=== PATIENT | male | born 1945 | race Caucasian/White ===

== ENCOUNTER 2017-09-04 21:37 | Emergency (ER) | payer MEDICARE ==
[2017-09-04] MEDS ORDERED: Orphenadrine Citrate 60 MG/2 ML VIAL ONE (22:47)
--- NOTE | 2017-09-04 22:50 | RAD ---
LUMBAR SPINE THREE VIEWS: 09/04/17 HISTORY: Low back pain. FINDINGS: Degenerative changes are present. No acute fracture or subluxation or bony destruction identified. Th ere are vascular calcifications. IMPRESSION: Lumbar spondylosis. POS: KARTHIKEYAN
== END 2017-09-04 23:10 | disposition home or self-care (01) ==
LOC: NAV ERS 21:37
DX: M54.5 Low back pain (principal); I10 Essential (primary) hypertension; E78.5 Hyperlipidemia, unspecified; Z86.73 Personal history of transient ischemic attack (TIA), and cerebral infarction without residual deficits
CPT/HCPCS: 72100; 96374; J2360

== ENCOUNTER 2017-09-14 14:13 | Emergency (ER) | payer MEDICARE ==
[2017-09-14 14:54] LABS: Bilirubin Negative (Negative); Blood, Urine Negative (Negative); Clarity Clear (Clear); Glucose, Urine (Dipstick) Negative (Negative); Leukocyte Negative (Negative); Nitrite Negative (Negative); Protein, Urine (Dipstick) Negative (Neg-Trace); Urobilinogen 0.2 mg/dL (0.2-1.0)
[2017-09-14 14:56] LABS: Specific Gravity, Urine 1.005 (1.002-1.036)
[2017-09-14] MEDS ORDERED: Tamsulosin HCl 0.4 MG CAP ONE (15:01)
== END 2017-09-14 15:17 | disposition home or self-care (01) ==
LOC: NAV ERS 14:13
DX: R33.9 Retention of urine, unspecified (principal); I10 Essential (primary) hypertension; Z86.73 Personal history of transient ischemic attack (TIA), and cerebral infarction without residual deficits; E78.5 Hyperlipidemia, unspecified; Z79.899 Other long term (current) drug therapy
CPT/HCPCS: 81003; 87086; 99283

== ENCOUNTER 2018-09-12 06:58 | Emergency (ER) | payer MEDICARE ==
[2018-09-12 07:54] LABS: Bacteria/HPF 1+ HPF (None Seen); WBC/HPF 21-50 HPF (0-3)
[2018-09-12 07:55] LABS: Other Microscopic Description NO
[2018-09-12 10:16] LABS: Clarity Cloudy (Clear)
[2018-09-12 10:18] LABS: Leukocyte Moderate (Negative); Nitrite Positive (Negative); Protein, Urine (Dipstick) Trace mg/dL (Neg-Trace)
[2018-09-12 10:19] LABS: Glucose, Urine (Dipstick) Negative (Negative)
[2018-09-12 10:20] LABS: Bilirubin Negative (Negative); Urobilinogen 0.2 mg/dL (0.2-1.0)
[2018-09-12 10:21] LABS: Blood, Urine Small (Negative)
== END 2018-09-12 08:10 | disposition home or self-care (01) ==
LOC: NAV ERS 06:58
DX: N39.0 Urinary tract infection, site not specified (principal); I10 Essential (primary) hypertension; E78.5 Hyperlipidemia, unspecified; Z86.73 Personal history of transient ischemic attack (TIA), and cerebral infarction without residual deficits
CPT/HCPCS: 81003; 81015; 87077; 87086; 87186; 99283

== ENCOUNTER 2019-08-20 09:13 | Emergency (ER) | payer MEDICARE | END 2019-08-20 10:00 | disposition home or self-care (01) | LOC: NAV ERS 09:13 | DX: J06.9 Acute upper respiratory infection, unspecified (principal); I10 Essential (primary) hypertension; Z86.73 Personal history of transient ischemic attack (TIA), and cerebral infarction without residual deficits; E78.5 Hyperlipidemia, unspecified; E78.00 Pure hypercholesterolemia, unspecified | CPT/HCPCS: 87804; 99283 ==

== ENCOUNTER 2020-08-10 08:58 | Inpatient (IN) | payer MEDICARE ==
[2020-08-10 09:27] LABS: #Basophils 0.1 thou/uL (0.0-0.2); #Eosinphils 0.2 thou/uL (0.0-0.7); #Lymphocytes 2.1 thou/uL (1.20-3.40); #Monocytes 0.5 thou/uL (0.11-0.59); #Neutrophils 3.9 thou/uL (1.40-6.50); %Basophils 1.2 % (0.0-1.0); %Eosinophils 3.1 % (0.0-10.0); %Lymphocytes 30.7 % (21.0-51.0); %Neutrophils 57.1 % (42.0-75.0); Hemoglobin 15.3 g/dL (14.0-18.0); Mean Corpuscular HGB CONC 34.1 g/dL (32.0-36.0); Mean Corpuscular Hemoglobin 32.5 pg (27.0-31.0); Mean Corpuscular Volume 95.5 fL (78.0-98.0); Mean Platelet Volume 7.1 fL (7.4-10.4); Platelet Count 160 thou/uL (130-400); RBC Distribution Width 11.4 % (11.5-14.5); Red Blood Cell (RBC) Count 4.71 mill/uL (4.70-6.10); White Blood Cell (WBC) Count 6.8 thou/uL (4.8-10.8)
[2020-08-10] MEDS ORDERED: Sodium Chloride 0.9% 1,000 ML ONE (09:40)
[2020-08-10 09:51] LABS: ALT (SGPT) 26 U/L (8-55); AST (SGOT) 18 U/L (5-34); Albumin 4.6 g/dL (3.4-4.8); Alkaline Phosphatase 62 U/L (40-110); Anion Gap 18 mmol/L (10-20); BUN (Urea Nitrogen) 28 mg/dL (8.4-25.7); Bilirubin, Total 0.6 mg/dL (0.2-1.2); CK (CPK) 52 U/L (30-200); Calc. Creatinine Clearance 0 mL/min (70-130); Calcium 10.9 mg/dL (7.8-10.44); Carbon Dioxide 22 mmol/L (23-31); Chloride 105 mmol/L (98-107); Globulin 3.6 g/dL (2.4-3.5); Glucose 109 mg/dL (83-110); Potassium 3.9 mmol/L (3.5-5.1); Protein, Total 8.2 g/dL (5.8-8.1); Sodium 141 mmol/L (136-145)
[2020-08-10 09:53] LABS: Bilirubin Negative (Negative); Blood, Urine Small (Negative); Clarity Clear (Clear); Glucose, Urine (Dipstick) Negative (Negative); Ketone, Urine Negative (Negative); Leukocyte Negative (Negative); Nitrite Negative (Negative); Protein, Urine (Dipstick) Negative (Neg-Trace); Specific Gravity, Urine 1.015 (1.005-1.030); Urobilinogen 0.2 mg/dL (Less than 2)
[2020-08-10 10:07] LABS: RBC/HPF 0-3 HPF (0-3); Squamous Epithelial 0-3 HPF (0-3); WBC/HPF 0-3 HPF (0-3)
--- NOTE | 2020-08-10 12:20 | RAD ---
CHEST 1 VIEW PORTABLE: Date: 08/10/2020 HISTORY: Generalized weakness. COMPARISON: 12/24/2014. FINDINGS: Heart size is within normal limits. No confluent pneumonia, overt edema, or pleural effusion. IMPRESSION: No significant acute intrathoracic disease. Stable from prior study. POS: RRE
--- NOTE | 2020-08-10 14:02 | CT ---
CT OF THE BRAIN WITHOUT CONTRAST: 08/10/20 COMPARISON: 12/24/14. HISTORY: Altered mental status. TECHNIQUE: Multiple contiguous axial images were obtained in a CT of the brain without contrast. FINDINGS: There is scattered hypodensities in the subcortical and periventricular white matter, likely secondar y to small vessel ischemic disease. There is encephalomalacia in the right parieto-occipital region l ikely secondary to a remote right RADIO ASSEMBLER distribution infarction. No loss of bonilla-white matter different iation is seen to suggest a new large confluent infarction. There is no evidence of hydrocephalus, intracranial hemorrhage or extra-axial fluid collection. The calvarium and overlying soft tissues are unremarkable. The visualized paranasal sinuses and masto id air cells are well aerated. IMPRESSION: Extensive small vessel ischemic disease without acute intracranial abnormality. POS: DELMYA
[2020-08-10 14:38] LABS: SARS-CoV-2 NAA Rapid Test Not Detected (NotDetected)
[2020-08-10] MEDS: Dextrose 5 %-0.45 % NaCl 1,000 ML IV SCH (17:04)
[2020-08-10] MEDS: Amlodipine 5 MG TAB PO SCH (21:01)
[2020-08-11] MEDS: Dextrose 5 %-0.45 % NaCl 1,000 ML IV SCH ×2 (04:17→16:48)
[2020-08-11 05:42] LABS: Hemoglobin 13.6 g/dL (14.0-18.0); Mean Corpuscular HGB CONC 33.6 g/dL (32.0-36.0); Mean Corpuscular Hemoglobin 32.1 pg (27.0-31.0); Mean Corpuscular Volume 95.6 fL (78.0-98.0); Platelet Count 197 thou/uL (130-400); RBC Distribution Width 11.5 % (11.5-14.5); Red Blood Cell (RBC) Count 4.22 mill/uL (4.70-6.10); White Blood Cell (WBC) Count 6.8 thou/uL (4.8-10.8)
[2020-08-11 05:43] LABS: #Basophils 0.1 thou/uL (0.0-0.2); #Eosinphils 0.2 thou/uL (0.0-0.7); #Lymphocytes 2.2 thou/uL (1.20-3.40); #Monocytes 0.6 thou/uL (0.11-0.59); #Neutrophils 3.7 thou/uL (1.40-6.50); %Basophils 1.2 % (0.0-1.0); %Eosinophils 3.1 % (0.0-10.0); %Lymphocytes 32.3 % (21.0-51.0); %Monocytes 9.1 % (0.0-10.0); %Neutrophils 54.3 % (42.0-75.0); Manual Diff?? NO; Mean Platelet Volume 6.5 fL (7.4-10.4)
[2020-08-11 05:52] LABS: ALT (SGPT) 21 U/L (8-55); AST (SGOT) 16 U/L (5-34); Alkaline Phosphatase 40 U/L (40-110); Anion Gap 13 mmol/L (10-20); BUN (Urea Nitrogen) 21 mg/dL (8.4-25.7); Bilirubin, Total 0.6 mg/dL (0.2-1.2); Calc. Creatinine Clearance 49 mL/min (70-130); Calcium 9.4 mg/dL (7.8-10.44); Carbon Dioxide 26 mmol/L (23-31); Chloride 106 mmol/L (98-107); Glucose 102 mg/dL (83-110); Potassium 3.6 mmol/L (3.5-5.1); Sodium 141 mmol/L (136-145)
[2020-08-11] MEDS: Amlodipine 5 MG TAB PO SCH (20:06)
[2020-08-12] MEDS: Dextrose 5 %-0.45 % NaCl 1,000 ML IV SCH (18:30)
[2020-08-12] MEDS: Amlodipine 5 MG TAB PO SCH (20:30)
[2020-08-13] MEDS: Dextrose 5 %-0.45 % NaCl 1,000 ML IV SCH (05:18)
[2020-08-13] MEDS: Amlodipine 5 MG TAB PO SCH (20:40)
[2020-08-14] MEDS: Dextrose 5 %-0.45 % NaCl 1,000 ML IV SCH ×2 (00:46→07:50)
[2020-08-14] MEDS ORDERED: Ventolin HFA Inhaler 60 PUFF INHALER ONE (10:38)
[2020-08-14] MEDS: Amlodipine 5 MG TAB PO SCH (21:09)
--- NOTE | 2020-08-15 11:18 | PRG ---
DATE OF SERVICE: 08/11/2020 SUBJECTIVE: The patient feels slightly better than cooperating with therapy, but is very weak and unable to do much. He has been eating fairly well, but still has poor appetite. OBJECTIVE: VITAL SIGNS: Temperature is 98.2, pulse 66, blood pressure 133/64, O2 sats 97% on room air. LUNGS: Clear. CARDIAC: Showed regular rhythm. ABDOMEN: Soft and nontender. SKIN/EXTREMITIES: Display improving condition of the skin on his feet and hands. PT, however, states the patient is unable to stand, transfer, and walk without assistance and definitely needs therapy for conditioning. PLAN: 1. Continue PT/OT. 2. Continue amlodipine . 3. Continue to monitor renal function with increased oral intake and nutrition. Job ID: [id number]
--- NOTE | 2020-08-15 11:20 | PRG ---
DATE OF SERVICE: 08/12/2020 SUBJECTIVE: The patient states he is feeling better, getting stronger, still very weak and unable to get out of the bed without assistance. OBJECTIVE: VITAL SIGNS: Temperature 98.5, pulse 66, respirations 16, O2 sats 98% on room air, blood pressure 149/65. LUNGS: Clear. CARDIAC: Showed regular rhythm. ABDOMEN: Soft and nontender. SKIN/EXTREMITIES: Show no edema, clubbing, cyanosis, OR erythema. NEUROLOGIC: Shows no focal findings. ASSESSMENT: 1. Slowly improving deconditioning. 2. Improving chronic kidney disease stage 3 with acute kidney injury. 3. Stable hypertension. PLAN: 1. Continue PT, OT. 2. Continue oral hydration. 3. Continue blood pressure control. 4. Repeat renal function in several days. Job ID: [id number]
--- NOTE | 2020-08-15 11:24 | PRG ---
DATE OF SERVICE: 08/13/2020 SUBJECTIVE: The patient is working with therapy, walking in the lassiter, but requires assistance and several times of rest. Denying any shortness of breath or chest pain. OBJECTIVE: VITAL SIGNS: Show temperature 97.9, pulse 65, respirations 16, O2 sats 97% on room air, blood pressure 135/79. LUNGS: Clear. CARDIAC: Showed regular rhythm. ABDOMEN: Soft, nontender. ASSESSMENT: 1. Improving deconditioning. 2. Stable hypertension. 3. Improving nutrition. 4. Improving acute kidney injury. PLAN: Continue PT, OT. Continue nutrition. Repeat labs for the next several days. Consider transfer to rehab for more therapy or home with [facility]. Job ID: [id number]
--- NOTE | 2020-08-15 11:25 | PRG ---
DATE OF SERVICE: 08/14/2020 SUBJECTIVE: The patient is working with therapy. States that he is improving, but feels he needs more therapy, hopefully at the rehab hospital. Objective is [facility]; however, states the patient most likely will not qualify as he is improving too quickly and has been recommended for [facility] with therapy by therapist at [place]. OBJECTIVE: VITAL SIGNS: Temperature is 96.1, pulse 75, respirations 18, O2 sats 91% on room air, blood pressure is 125/61. LUNGS: Clear. CARDIAC: Shows a regular rhythm. ABDOMEN: Soft and nontender. ASSESSMENT: 1. Improving deconditioning. 2. Stable hypertension. 3. Improving acute kidney injury superimposed on chronic kidney disease stage 3. PLAN: 1. Repeat basic metabolic profile in the a.m. 2. Continue PT/OT. 3. Discuss discharge planning with family and Therapy. Job ID: [id number]
--- NOTE | 2020-08-15 12:12 | HP ---
HISTORY OF PRESENT ILLNESS: The patient is a 75-year-old male with a history of generalized weakness for the last week or inability to maintain ADLs. He lives alone and has a previous history of recent COVID-19 vaccination with significant weakness and malaise afterwards. His past medical history is remarkable also for hypertension and a distant CVA 2 years ago, as well as uncontrolled hyperlipidemia. He denies any chest pain or shortness of breath. No sputum production. He does have occasional cough for the last several years. He does have a mild sore throat and some poor appetite. He was found in the emergency room to be unable to stand and walk without assistance. PAST SURGICAL HISTORY: Positive for prostate surgery in 2019. SOCIAL HISTORY: He denies drug use, nicotine abuse. Drinks rarely alcohol. ALLERGIES: HE HAS NO KNOWN ALLERGIES. MEDICATIONS: He takes amlodipine 5 mg at night for his blood pressure. REVIEW OF SYSTEMS: HEENT: Complains of mild headache, malaise, sore throat. No change in his vision or hearing. PULMONARY: He has a mild nonproductive cough. No shortness of breath, chest pain or pleurisy. CARDIOVASCULAR: Denies dyspnea on exertion, palpitations, orthopnea, paroxysmal nocturnal dyspnea. GASTROINTESTINAL: Denies nausea, vomiting, diarrhea, constipation, but has very poor appetite. GENITOURINARY: Denies dysuria, hematuria, nocturia. MUSCULOSKELETAL: He has some mild diffuse arthralgias. NEUROLOGIC: Complains of diffuse generalized weakness, but no focal finding. PHYSICAL EXAMINATION: GENERAL: The patient is an elderly white male, appears disheveled, in mild distress, is oriented x3 and cooperative. VITAL SIGNS: Showed to have blood pressure of 174/74, temperature is 98, pulse 67, respirations 20, O2 sats 98% on room air. HEENT: Pupils are equal, round, and reactive to light and accommodation. Sclerae anicteric. Conjunctivae pale. Oral mucous membranes slightly hydrated. NECK: Supple. There are no nodes or masses. JVP is not elevated. LUNGS: Clear. CARDIAC: Showed regular rhythm. No gallops or murmurs. ABDOMEN: Soft and nontender with no masses or organomegaly. SKIN: Extremities display no edema, clubbing, or cyanosis. There is dry scaling, slightly irritated skin on the feet. NEUROLOGIC: Cranial nerves 2 through 12 are intact. Deep tendon reflex 2+ and equal. There are absent Babinski's. LABORATORY DATA: Show white count of 6800, hematocrit 44, hemoglobin 15. Sodium 141, potassium 3.9, chloride 105, bicarb 22, BUN 28, creatinine 1.62, calcium 10.9, albumin 4.6. ASSESSMENT: A 75-year-old white male with inability to maintain activities of daily living after second COVID infection with underlying poorly-controlled hypertension and severe deconditioning, chronic kidney disease stage 3. PLAN: 1. PT/OT consult. 2. Restart amlodipine. 3. Monitor nutritional intake. 4. Repeat labs to evaluate chronic kidney infection. Job ID: [id number]
[2020-08-15 15:45] LABS: Anion Gap 16 mmol/L (10-20); BUN (Urea Nitrogen) 14 mg/dL (8.4-25.7); Calc. Creatinine Clearance 61 mL/min (70-130); Calcium 8.8 mg/dL (7.8-10.44); Carbon Dioxide 21 mmol/L (23-31); Chloride 104 mmol/L (98-107); Glucose 91 mg/dL (83-110); Potassium 3.5 mmol/L (3.5-5.1); Sodium 137 mmol/L (136-145)
[2020-08-15] MEDS: Amlodipine 5 MG TAB PO SCH (20:45)
[2020-08-16] MEDS: Amlodipine 5 MG TAB PO SCH (20:57)
[2020-08-16] MEDS: Acetaminophen 500 MG TAB PO PRN (20:57)
[2020-08-16] MEDS: Cepastat Lozenges 1 LOZ PO PRN (23:26)
--- NOTE | 2020-08-17 13:22 | PRG ---
DATE OF SERVICE: 08/17/2020 SUBJECTIVE: Mr. Pantoja is up in bed. He denies any questions. He feels like he is getting stronger. No family at bedside. Apparently, hospital is waiting on insurance approval to get him admitted to swing bed. If for some reason, he is not approved, then he will be discharged home with home health. Family apparently is aware. OBJECTIVE: VITAL SIGNS: He is afebrile, heart rate 68, respirations 18, oxygen saturation 96% on room air, blood pressure 151/66. CARDIOVASCULAR: S1-S2 plus. RESPIRATORY: Normal vesicular breath sounds. ABDOMEN: Soft and nontender. Bowel sounds heard in all quadrants. EXTREMITIES: Without cyanosis or clubbing. CENTRAL NERVOUS SYSTEM: Improving deconditioning, generalized weakness, otherwise nonfocal. IMPRESSION: 1. Hypertension. 2. History of cerebrovascular accident with residual deficits. 3. Dyslipidemia. 4. History of prostate surgery. 5. chronic kidney disease stage 2 based upon the very recent GFR. PLAN: 1. Continue current medications. 2. Low-sodium diet. 3. Physical therapy. 4. Encourage p.o. fluid intake. 5. Await insurance approval. 6. Continue therapy as tolerated. 7. Routine laboratory values. 8. Discussed with the patient and staff. All questions answered. Job ID: [id number] MTDD
[2020-08-17] MEDS: Amlodipine 5 MG TAB PO SCH (20:45)
[2020-08-17] MEDS: Acetaminophen 500 MG TAB PO PRN (20:45)
--- NOTE | 2020-08-18 14:59 | PRG ---
DATE OF SERVICE: 08/18/2020 SUBJECTIVE: Mr. Pantoja is resting in bed. He just finished lunch. He states he is bored. I did advise nursing to get him out of bed to chair at least three times a day. Again, pending insurance authorization for him to be transferred to skilled bed and continue therapy. If they deny it, then he will be sent home with home health. No family at bedside. OBJECTIVE: VITAL SIGNS: He is afebrile, heart rate 62, respirations 18, oxygen saturation 97% on room air, blood pressure 128/60. CARDIOVASCULAR SYSTEM: S1-S2 plus. RESPIRATORY SYSTEM: Normal vesicular breath sounds. ABDOMEN: Soft and nontender. Bowel sounds heard in all quadrants. EXTREMITIES: Without cyanosis or clubbing. CENTRAL NERVOUS SYSTEM: Generalized weakness, otherwise nonfocal. IMPRESSION: 1. Hypertension. 2. Significant deconditioning after his second dose of COVID-19 vaccine. 3. History of cerebrovascular accident with residual deficits. 4. Dyslipidemia. 5. Chronic kidney disease stage 2. PLAN: 1. Continue current medications. 2. Heart healthy diet. 3. Monitor blood pressure and adjust medications as needed. 4. Physical therapy. Await insurance approval. 5. DVT and stress ulcer prophylaxis. 6. Increase activity. Job ID: [id number]
[2020-08-18 17:57] VITALS: BMI 28.3
[2020-08-18] MEDS: Acetaminophen 500 MG TAB PO PRN (21:02)
[2020-08-18] MEDS: Amlodipine 5 MG TAB PO SCH (21:03)
[2020-08-19] MEDS: Cepastat Lozenges 1 LOZ PO PRN ×2 (07:25→14:58)
[2020-08-19 08:23] VITALS: BP 148/61; TEMP 96.6
--- NOTE | 2020-08-19 21:09 | DIS ---
DATE OF ADMISSION: 08/10/2020 DATE OF DISCHARGE: 08/19/2020 PRINCIPAL DIAGNOSES: Weakness and dehydration following second COVID-19 vaccine. SECONDARY DIAGNOSES: 1. Hypertension. 2. History of cerebrovascular accident. 3. with residual deficits. 4. History of prostate surgery. 5. Dyslipidemia. COMPLICATIONS: None. ADVERSE REACTIONS: None. PROCEDURES: None. CONSULTATIONS: None. HOSPITAL COURSE: The patient was admitted after becoming significantly debilitated after his second COVID-19 infection. He was also felt to be dehydrated. He was admitted to the hospital by Dr. Lee. He has improved well enough and doing better with activity, but Therapy felt that he may benefit from some more therapy and we were trying to get him to a swing bed. Unfortunately, we have not heard back from insurance. Family states that they do want to take him home with [facility] and they state that they can manage him at home, and they have taken care of him in the past, so if we have not heard back from insurance today, the hospital wants to discharge him home with home health and Therapy feels that he is safe to go home with home health. PHYSICAL EXAMINATION: VITAL SIGNS: On the day of discharge, he is afebrile. Heart rate 61, respirations 18, oxygen saturation 94% on room air, blood pressure 148/61. CARDIOVASCULAR SYSTEM: S1, S2 plus. RESPIRATORY SYSTEM: Normal vesicular breath sounds. ABDOMEN: Soft, nontender. Bowel sounds heard in all quadrants. EXTREMITIES: Without cyanosis or clubbing. CENTRAL NERVOUS SYSTEM: Residual deficits from his CVA. Otherwise nonfocal. DISCHARGE MEDICATIONS: 1. Amlodipine 5 mg daily. 2. Tylenol 500 mg q.6h p.r.n. DISCHARGE INSTRUCTIONS: He is to follow a low-sodium diet. He is to follow up in my office in 2 weeks. The patient does meet criteria for home health as he is homebound. He does not drive. Therapy feels that he will benefit from continued physical therapy and occupational therapy. Please consider this note as [id number] documentation. For full details, please see chart. TIME SPENT: Total time spent on this discharge 20 minutes. Job ID: [id number]
--- NOTE | 2020-08-21 09:01 | DIS ---
DATE OF ADMISSION: 08/10/2020 DATE OF DISCHARGE: 08/19/2020 FINAL DIAGNOSES: 1. Severe deconditioning and inability to maintain ADLs secondary to COVID-19 vaccination. 2. Benign prostatic hypertrophy. 3. Hypertension. HOSPITAL COURSE: The patient is a 75-year-old white male with a history of generalized weakness since his second COVID-19 vaccination with inability to maintain ADLs. He has a past history of hypertension and distant CVA and uncontrolled hyperlipidemia. He had been living alone at home. Family found him disheveled, unable to get out of bed and care for himself. He was therefore taken to the emergency room. He was found to have hypertension, mild dehydration, and severe weakness. Blood pressure was 174/74, temperature was 98, lungs were clear. Neurologic showed no focal findings. White count 6800, hematocrit 44, hemoglobin 15. Sodium 141, potassium 3.9, chloride 105, bicarb 22, BUN was 28, creatinine 1.62, calcium 10.9, albumin 4.6; therefore, admitted to the hospital, had PT and OT consult, restarted on amlodipine. Nutritional intake was monitored. Urinalysis was done, which was negative. A SARS test was done, which negative for COVID, influenza was negative. He slowly, but surely improved, but was still very unsafe to maintain ADLs and therefore was felt to require more intensive physical therapy and was discharged on August 16 to be admitted to the [facility] for more PT and OT. Job ID: [id number]
== END 2020-08-19 15:43 | disposition swing bed (61) | DRG 948 ==
LOC: NAV ERS 08:58 → NAV ACUTE 14:14 → OBSVTOIN 14:14
PROVIDERS: ADMIT Internal Medicine; ATTEND Internal Medicine
DX: R53.81 Other malaise (principal); N17.9 Acute kidney failure, unspecified; E86.0 Dehydration; E78.5 Hyperlipidemia, unspecified; N18.30 Chronic kidney disease, stage 3 unspecified; Z20.822 Contact with and (suspected) exposure to COVID-19; I12.9 Hypertensive chronic kidney disease with stage 1 through stage 4 chronic kidney disease, or unspecified chronic kidney disease; Z98.890 Other specified postprocedural states; I69.30 Unspecified sequelae of cerebral infarction
CPT/HCPCS: 0240U; 36415; 51701; 70450; 71045; 80048; 80053; 81003; 81015; 82550; 84484; 85025; 93005; J7042; J7050

== ENCOUNTER 2020-08-19 15:57 | Inpatient (IN) | payer MEDICARE ==
[2020-08-19] MEDS: Acetaminophen 500 MG TAB PO PRN (21:09)
[2020-08-19] MEDS: Cepastat Lozenges 1 LOZ PO PRN (21:09)
[2020-08-19] MEDS: Amlodipine 5 MG TAB PO SCH (21:10)
[2020-08-19] MEDS ORDERED: Cepastat Lozenges 1 LOZ PO SCH (22:00)
[2020-08-20] MEDS: Cepastat Lozenges 1 LOZ PO PRN ×2 (08:34→20:01)
[2020-08-20] MEDS: Amlodipine 5 MG TAB PO SCH (20:01)
--- NOTE | 2020-08-20 20:11 | HP ---
PRINCIPAL DIAGNOSES: Hypertension and deconditioning for continued therapy. BRIEF HISTORY: This is a pleasant 75-year-old male, who was admitted to the acute floor with significant deconditioning, dehydration after his second COVID vaccine. He did participate with therapy and improved, but was felt to need more therapy, and his insurance approved him finally to get admitted to the skilled bed. He has now been admitted to the skilled bed to continue therapy. Medically, the patient is doing well and denies any concerns. No further dehydration. No nausea or vomiting. He is tolerating his p.o. intake. PAST MEDICAL HISTORY: 1. Hypertension. 2. Dyslipidemia. 3. History of CVA with residual deficits. PAST SURGICAL HISTORY: Prostate surgery. PSYCHOSOCIAL HISTORY: Denies any tobacco or recreational drug abuse. Social alcohol intake. He is active, but does have limitations because of residual deficits from his CVA. ALLERGIES: NO KNOWN DRUG ALLERGIES. MEDICATIONS: 1. Amlodipine 5 mg at bedtime. 2. Aspirin 81 mg daily. FAMILY HISTORY: Noncontributory to current admission. REVIEW OF SYSTEMS: CARDIOVASCULAR SYSTEM: Denies any chest pain, shortness of breath, palpitations, PND, orthopnea, or pedal edema. RESPIRATORY SYSTEM: Denies any chronic cough, expectoration, or pleuritic-type chest pain. GASTROINTESTINAL SYSTEM: Denies any nausea, vomiting, diarrhea, constipation, hematemesis, melena, or hematochezia. GENITOURINARY SYSTEM: Denies any frequency, urgency, dysuria, or hematuria. CENTRAL NERVOUS SYSTEM: Denies any focal numbness, weakness, or fainting spells. Improving deconditioning. SKIN: Denies any rash. HEENT: Denies any changes with speech, vision, hearing, or swallowing. PHYSICAL EXAMINATION: GENERAL: This is a pleasant 75-year-old male, who is resting comfortably in bed. He apparently participated with therapy and was sitting through lunch, just got back in bed. VITAL SIGNS: He is afebrile. Heart rate 61, respirations 18, oxygen saturation 96% on room air, blood pressure 129/65. CARDIOVASCULAR SYSTEM: S1, S2 plus. Rate and rhythm regular. RESPIRATORY SYSTEM: Normal vesicular breath sounds heard in all lung duran. ABDOMEN: Soft, nontender. Bowel sounds heard in all quadrants. EXTREMITIES: Without cyanosis or clubbing. CENTRAL NERVOUS SYSTEM: Awake and responsive. Cranial nerves 2 through 12 are intact. Residual deficits from his CVA. Generalized weakness, otherwise nonfocal. IMPRESSION: 1. Hypertension. 2. Dyslipidemia. 3. History of cerebrovascular accident with residual deficits. 4. Status post prostate surgery. 5. Deconditioning. PLAN: 1. Continue home medications. 2. Low-sodium diet. 3. PT/OT eval and treat. 4. DVT prophylaxis. The patient is mobile enough that he does not need any. 5. Decubitus precautions. 6. Stress ulcer prophylaxis. 7. Routine laboratory values. 8. Consult Case Management. 9. Discussed with the patient and staff in detail. All questions answered. No family at bedside. Job ID: [id number]
[2020-08-21] MEDS: Acetaminophen 500 MG TAB PO PRN ×2 (10:03→20:38)
--- NOTE | 2020-08-21 13:51 | PRG ---
DATE OF SERVICE: 08/21/2020 SUBJECTIVE: Mr. Pantoja is walking in the hallway with Therapy with the help of his walker. Therapy feels that he should be ready to go home either later this week or early next week. They get initially felt that he may benefit from some continued supervision at home and they said they can be either by the home health or by caregivers if they can visit him regularly. OBJECTIVE: VITAL SIGNS: The patient is afebrile. Heart rate 84, respirations 20, oxygen saturation 97% on room air, blood pressure 144/65. CARDIOVASCULAR SYSTEM: S1-S2 plus. RESPIRATORY SYSTEM: Normal vesicular breath sounds. ABDOMEN: Soft, nontender. Bowel sounds heard in all quadrants. EXTREMITIES: Without cyanosis or clubbing. CENTRAL NERVOUS SYSTEM: Awake and responsive. Cranial nerves 2 through 12 intact, residual deficits from his prior CVA, improving deconditioning. IMPRESSION: 1. Hypertension, well controlled. 2. Dyslipidemia. 3. History of cerebrovascular accident with residual deficits. 4. Improving deconditioning. PLAN: 1. Continue current medications. 2. Low-sodium diet. 3. Physical therapy. 4. Nutritional support. 5. Discharge planning. 6. Discussed with the patient and Lynn from Therapy. All questions answered. Job ID: [id number]
[2020-08-21] MEDS: Cepastat Lozenges 1 LOZ PO PRN (17:43)
[2020-08-21] MEDS: Amlodipine 5 MG TAB PO SCH (20:39)
[2020-08-22] MEDS: Acetaminophen 500 MG TAB PO PRN ×2 (09:33→21:16)
[2020-08-22] MEDS: Cepastat Lozenges 1 LOZ PO PRN (09:33)
--- NOTE | 2020-08-22 13:24 | PRG ---
DATE OF SERVICE: 08/22/2020 SUBJECTIVE: Mr. Pantoja is resting in bed. He denies any complaints. He is progressing with therapy. On further discussion, he apparently has a community-based alteratives program through [facility], where a caregiver comes and I think he is at 42 hours a week to take care of him. OBJECTIVE: VITAL SIGNS: He is afebrile, heart rate 81, respirations 17, oxygen saturation 97% on room air, blood pressure 141/67. CARDIOVASCULAR SYSTEM: S1 and S2 plus. RESPIRATORY SYSTEM: Normal vesicular breath sounds. ABDOMEN: Soft, nontender. Bowel sounds heard in all quadrants. EXTREMITIES: Without cyanosis, clubbing. CENTRAL NERVOUS SYSTEM: Generalized weakness, mild deficits from his prior CVA. IMPRESSION: 1. Hypertension. 2. Dyslipidemia. 3. History of cerebrovascular accident with residual deficits. 4. Much improved deconditioning. PLAN: 1. Continue current medications. 2. Low-sodium diet. 3. Discharge planning, anticipate discharging home tomorrow. 4. Continue CBA program that he has. 5. He will follow up in my office in two weeks. 6. Discussed with the patient. No concerns. Job ID: [id number]
[2020-08-22] MEDS: Amlodipine 5 MG TAB PO SCH (21:17)
[2020-08-23] MEDS: Cepastat Lozenges 1 LOZ PO PRN ×3 (01:21→20:54)
--- NOTE | 2020-08-23 09:41 | PRG ---
DATE OF SERVICE: 08/23/2020 SUBJECTIVE: Mr. Pantoja is doing the same. He is improving. There is concern that he may not have enough help at home. The patient states that he has caregivers, coming from [place]. I think it is through the community-based alternatives program. His daughter apparently states no, he does not have anyone. Therapy states that he is okay to go home if he either has someone there to get him up and moving or we can arrange Home Health. Unfortunately, with his insurance, we are not be able to arrange any Home Health, so until that is done or we can figure out that there is a caregiver, he is going to be staying here from a safety standpoint. OBJECTIVE: VITAL SIGNS: He is afebrile. Heart rate 62, respirations 20, oxygen saturation 98% on room air, blood pressure 171/70 this morning. I will have them repeat and recheck it and call me if it is more than 140/90. CARDIOVASCULAR SYSTEM: S1-S2 plus. RESPIRATORY SYSTEM: Normal vesicular breath sounds. ABDOMEN: Soft, nontender. Bowel sounds heard in all quadrants. EXTREMITIES: Without cyanosis, clubbing. CENTRAL NERVOUS SYSTEM: Improving deconditioning. Old residual from his CVA. IMPRESSION: 1. Hypertension. 2. Dyslipidemia. 3. History of cerebrovascular accident with residual deficits. 4. Improving deconditioning from his second coronavirus disease 2019 vaccine. PLAN: 1. Continue current medications. 2. Heart healthy diet. 3. Continue physical therapy. 4. Discharge planning. 5. Discharge home once it has been established that it is safe discharge. Otherwise, keep him here and continue therapy until things can be sorted out at home. Discussed with the senior cytogenetics laboratory director as well as discussed with the patient and staff. Dr. Lee on-call this weekend. Job ID: [id number]
[2020-08-23] MEDS: Milk Of Magnesia 30 ML UDCUP PO PRN (11:46)
[2020-08-23] MEDS: Amlodipine 5 MG TAB PO SCH (20:54)
[2020-08-23] MEDS: Acetaminophen 500 MG TAB PO PRN (20:54)
[2020-08-24] MEDS: Acetaminophen 500 MG TAB PO PRN ×3 (08:35→20:45)
[2020-08-24] MEDS: Cepastat Lozenges 1 LOZ PO PRN ×2 (08:35→20:46)
[2020-08-24 15:48] LABS: SARS-CoV-2 NAA Rapid Test Not Detected (NotDetected)
[2020-08-24] MEDS: Amlodipine 5 MG TAB PO SCH (20:45)
[2020-08-25 05:53] VITALS: BMI 27.8
[2020-08-25] MEDS: Acetaminophen 500 MG TAB PO PRN ×2 (08:54→14:50)
[2020-08-25] MEDS: Cepastat Lozenges 1 LOZ PO PRN ×2 (08:54→16:55)
[2020-08-25] MEDS: Amlodipine 5 MG TAB PO SCH (20:24)
[2020-08-26] MEDS: Cepastat Lozenges 1 LOZ PO PRN ×2 (01:05→20:25)
[2020-08-26] MEDS: Acetaminophen 500 MG TAB PO PRN ×2 (04:07→20:24)
--- NOTE | 2020-08-26 13:39 | PRG ---
DATE OF SERVICE: 08/26/2020 SUBJECTIVE: Mr. Pantoja is seen on his way to therapy. He is happy with his progress. Discussed with nursing. OBJECTIVE: VITAL SIGNS: He is afebrile, heart rate is 63, respirations 18, oxygen saturation 97% on room air, and blood pressure 149/66. CARDIOVASCULAR SYSTEM: S1 and S2 plus. RESPIRATORY SYSTEM: Normal vesicular breath sounds. ABDOMEN: Soft and nontender. Bowel sounds heard in all quadrants. EXTREMITIES: Without cyanosis or clubbing. CENTRAL NERVOUS SYSTEM: Generalized weakness with residual deficits from his prior CVA, improving deconditioning. IMPRESSION: 1. Deconditioning after a 2nd COVID-19 vaccine, much improved. 2. Hypertension. 3. Dyslipidemia. 4. History of cerebrovascular accident with residual deficits. PLAN: 1. Continue current medications. 2. Heart healthy diet. 3. Continue therapy. 4. Discharge planning. 5. Routine laboratory values. 6. Discussed with the patient in detail. All questions answered. 7. No family at bedside. Job ID: [id number]
[2020-08-26] MEDS: Amlodipine 5 MG TAB PO SCH (20:24)
--- NOTE | 2020-08-27 06:30 | PRG ---
DATE OF SERVICE: 08/25/2020 SUBJECTIVE: The patient feels well, sitting up in bed, waiting more therapy, asking when he can be discharged home and finishes therapy. OBJECTIVE: VITAL SIGNS: Shows temperature is 98.6, pulse 72, respirations 16, O2 saturations 96% on room air, blood pressure 159/73. LUNGS: Clear. CARDIAC: Showed regular rhythm. ABDOMEN: Soft and nontender. SKIN/EXTREMITIES: Showed no edema, clubbing, or cyanosis. NEUROLOGICAL: Shows diffuse weakness, worse on the left side. ASSESSMENT: 1. Stable hypertension. 2. Improving deconditioning. 3. Stable cerebrovascular accident with deficits. PLAN: Restart PT/OT tomorrow. Dr. Moulton back tomorrow. Discharge planning this week. Continue to monitor vital signs with therapy and continue to monitor adequate oral and dietetic caloric intake. Job ID: [id number]
--- NOTE | 2020-08-27 13:31 | PRG ---
DATE OF SERVICE: 08/27/2020 SUBJECTIVE: Mr. Pantoja is doing well. He is resting in bed. He just finished lunch. He denies any questions or concerns. Apparently, arrangements have been made for home health through [facility]. Anticipated discharge date is tomorrow. Apparently, he has to meet certain criteria per his insurance and that is being managed by the nursing and administrative staff. OBJECTIVE: VITAL SIGNS: The patient is afebrile, heart rate 64, respirations 17, oxygen saturation 97% on room air, blood pressure 149/67. CARDIOVASCULAR SYSTEM: S1 and S2 plus. RESPIRATORY SYSTEM: Normal vesicular breath sounds. ABDOMEN: Soft and nontender. Bowel sounds heard in all quadrants. EXTREMITIES: Without cyanosis or clubbing. CENTRAL NERVOUS SYSTEM: Improving deconditioning, residual deficits from his prior CVA. IMPRESSION: 1. Hypertension. 2. Dyslipidemia. 3. History of cerebrovascular accident with residual deficits. 4. Improving deconditioning from his second COVID vaccine. PLAN: 1. Continue current medications. 2. Heart healthy diet. 3. Continue therapy. 4. Discharge planning. 5. Discussed with the patient in detail. All questions answered. Job ID: [id number]
[2020-08-27] MEDS: Cepastat Lozenges 1 LOZ PO PRN (20:30)
[2020-08-27] MEDS: Acetaminophen 500 MG TAB PO PRN (20:30)
[2020-08-27] MEDS: Amlodipine 5 MG TAB PO SCH (20:30)
[2020-08-28] MEDS: Milk Of Magnesia 30 ML UDCUP PO PRN (04:57)
[2020-08-28] MEDS: Acetaminophen 500 MG TAB PO PRN ×2 (12:09→21:03)
[2020-08-28] MEDS: Cepastat Lozenges 1 LOZ PO PRN (12:11)
[2020-08-28] MEDS: Amlodipine 5 MG TAB PO SCH (21:04)
--- NOTE | 2020-08-29 05:18 | PRG ---
DATE OF SERVICE: 08/28/2020 SUBJECTIVE: Mr. Pantoja is doing the same. He denies any complaints. Initial plan was for him to go home, then apparently daughter stated that they do not have enough care for him at home and she wanted him to go to a fci. She apparently stated that she has the medical power of trademark attorney. The patient has been resistant to going to the fci. He states that he was doing fine at home prior to coming here and is not sure why suddenly he cannot be taken care of at home. He does understand the increased risk for fall and he states that he can do the same thing in the fci as well. He does have mild cognitive impairment, but it is my medical opinion that he does understand the risks and that he can make his decision regarding going home, although, I do not think it is the right decision, but the patient states that he does have a caregiver through [facility] from [employer] who is there 42 hours a week and [facility] has also agreed to take him on home health to monitor him. It is certainly reasonable for them to try this at home before a decision is made as to whether the care is not feasible or he is at high risk. We probably will have APS go by and evaluate the patient in a week's time and see the care going on and how he is doing at home. OBJECTIVE: VITAL SIGNS: He is afebrile. Heart rate 76, respirations 18, oxygen saturation 97% on room air, blood pressure 124/63. CARDIOVASCULAR: S1-S2 plus. RESPIRATORY: Normal vesicular breath sounds. ABDOMEN: Soft and nontender. Bowel sounds heard in all quadrants. EXTREMITIES: Without cyanosis or clubbing. CENTRAL NERVOUS SYSTEM: Generalized weakness, mild residual deficits, otherwise nonfocal. IMPRESSION: 1. Hypertension. 2. Dyslipidemia. 3. History of cerebrovascular accident with residual deficits. 4. Improving deconditioning. PLAN: 1. Continue current medications. 2. Heart healthy diet. 3. Discharge planning. 4. If he decides to go home, I am okay with that since he does have a caregiver who is there 42 hours a week and Home Health is going to be seeing him and we will inform Adult Protective Services from a precaution standpoint and have them check on the patient in a week or so just to see how he is coping. No family at bedside currently. Discussed with nursing staff. Job ID: [id number]
[2020-08-29 07:49] VITALS: TEMP 97.2
[2020-08-29] MEDS: Acetaminophen 500 MG TAB PO PRN (12:17)
--- NOTE | 2020-08-29 13:45 | DIS ---
DATE OF ADMISSION: 08/19/2020 DATE OF DISCHARGE: 08/29/2020 PRINCIPAL DIAGNOSIS: Significant deconditioning after second COVID-19 vaccination. SECONDARY DIAGNOSES: 1. Hypertension. 2. Dyslipidemia. 3. History of cerebrovascular accident with minimal residual deficits. COMPLICATIONS: None. ADVERSE REACTIONS: None. PROCEDURES: None. CONSULTATIONS: Physical Therapy and Occupational Therapy. HOSPITAL COURSE: The patient was admitted after becoming significantly weak after his second COVID-19 vaccine to the point that he was unable to take care of himself. He was admitted to the hospital, given IV fluids and therapy was consulted. He started to improve. He was pretty much back to his baseline from the medical standpoint, but continued to remain weak, so he was transferred to the skilled bed and continued therapy. There was some confusion regarding the discharge planning as his daughter wanted him to go to a nursing facility, but the patient who understands his medical condition and who understands the risk that he faces when he goes home, states that he wants to go home. It is my medical opinion that he is competent to make this decision. When I talked to him about nursing facility, he states that they do not get good care and they do not get enough activity and he does not want to go to the nursing facility and when I told him that at home if he does not have a caregiver, he is at slightly increased risk for fall. He states the same thing can happen in the nursing facility as well as there is not someone there 18/01 with him. The patient has been arranged home health care to continue therapy at home. We will also have the social services manager from home health to go and visit him and see if he needs any DME or equipment. He does have caregiver services and he states 42 hours per week and that we will continue. Administration is talking with daughter to make sure all of us are on the same page because daughter apparently when was told the patient wanted to go back home, she then apparently stated that the facility where he is staying, does not want him back, but the hospital called the facility and apparently the facility stated no, they will be happy to take care of him and they know him well, so there is some social issue going on. PHYSICAL EXAMINATION: VITAL SIGNS: On the day of discharge, the patient is afebrile, heart rate 70, respirations 18, oxygen saturation 97% on room air, blood pressure 152/70. CARDIOVASCULAR SYSTEM: S1 and S2 plus. RESPIRATORY SYSTEM: Normal vesicular breath sounds. ABDOMEN: Soft and nontender. Bowel sounds heard in all quadrants. EXTREMITIES: Without cyanosis or clubbing. CENTRAL NERVOUS SYSTEM: Awake and responsive. Cranial nerves 2 through 12 intact. Minimal residual deficits from his prior CVA. DISCHARGE MEDICATIONS: 1. Amlodipine 5 mg daily. 2. Ecotrin 81 mg daily. 3. Tylenol 500 q.6 p.r.n. [facility] is going to be providing both home health services with senior care visits, PT and OT as well as caregiver services through the [facility] program. Heart healthy diet. Activity as tolerated. The patient to call me with any questions or concerns. He is to follow up in my office in about 3 to 4 weeks. He does not need any refills on his prescriptions as these are old prescriptions, but he will contact us if he needs any assistance. For full details, please see chart. Job ID: [id number]
[2020-08-29 15:18] VITALS: BP 148/71
== END 2020-08-29 17:59 | disposition home health service (06) | DRG 948 ==
LOC: NAV ACUTE 15:57
PROVIDERS: ADMIT Internal Medicine; ATTEND Internal Medicine
DX: R53.81 Other malaise (principal); I10 Essential (primary) hypertension; E78.5 Hyperlipidemia, unspecified; E86.0 Dehydration; Z79.82 Long term (current) use of aspirin; Z79.899 Other long term (current) drug therapy; I69.30 Unspecified sequelae of cerebral infarction
CPT/HCPCS: 0240U; 87081; 87430

== ENCOUNTER 2021-08-06 00:06 | Emergency (ER) | payer MEDICARE ==
[2021-08-06] MEDS ORDERED: Acetaminophen 500 MG TAB ONE (00:31)
[2021-08-06 00:59] LABS: #Eosinphils 0.2 thou/uL (0.0-0.7); #Lymphocytes 0.6 thou/uL (1.20-3.40); #Monocytes 0.3 thou/uL (0.11-0.59); %Basophils 0.8 % (0.0-1.0); %Eosinophils 3.3 % (0.0-10.0); %Lymphocytes 11.2 % (21.0-51.0); %Neutrophils 78.7 % (42.0-75.0); Manual Diff?? NO; Mean Corpuscular HGB CONC 29.4 g/dL (32.0-36.0); Mean Corpuscular Hemoglobin 21.7 pg (27.0-31.0); Mean Corpuscular Volume 73.7 fL (78.0-98.0); Mean Platelet Volume 8.1 fL (7.4-10.4); Platelet Count 295 thou/uL (130-400); RBC Distribution Width 14.8 % (11.5-14.5); Red Blood Cell (RBC) Count 3.69 mill/uL (4.70-6.10); White Blood Cell (WBC) Count 5.1 thou/uL (4.8-10.8)
[2021-08-06 06:33] LABS: BUN (Urea Nitrogen) 14 mg/dL (8.4-25.7); Calc. Creatinine Clearance 0 mL/min (70-130); Carbon Dioxide 20 mmol/L (23-31); Chloride 107 mmol/L (98-107); Potassium 3.8 mmol/L (3.5-5.1); Sodium 138 mmol/L (136-145)
[2021-08-06 06:34] LABS: AST (SGOT) 10 U/L (5-34); Albumin 4.4 g/dL (3.4-4.8); Alkaline Phosphatase 67 U/L (40-110); Bilirubin, Total 0.5 mg/dL (0.2-1.2); Calcium 9.2 mg/dL (7.8-10.44); Globulin 3.5 g/dL (2.4-3.5); Glucose 100 mg/dL (83-110); Protein, Total 7.9 g/dL (5.8-8.1)
[2021-08-06 06:35] LABS: ALT (SGPT) 8 U/L (8-55)
[2021-08-06 06:36] LABS: Anion Gap 16 mmol/L (10-20)
[2021-08-06 14:34] LABS: SARS-CoV-2 PCR by NAA DETECTED (NotDetected)
== END 2021-08-06 01:50 | disposition home or self-care (01) ==
LOC: NAV ERS 00:06
DX: U07.1 COVID-19 (principal); J06.9 Acute upper respiratory infection, unspecified; I10 Essential (primary) hypertension; E78.5 Hyperlipidemia, unspecified; Z86.73 Personal history of transient ischemic attack (TIA), and cerebral infarction without residual deficits
CPT/HCPCS: 71045; 80053; 83605; 85025; 87804; U0003; U0005

== ENCOUNTER → 2022-06-11 | Emergency (ER) | payer OTHER | LOC: NAV ERS 02:03 | DX: N40.1 Benign prostatic hyperplasia with lower urinary tract symptoms (principal); R33.8 Other retention of urine; N13.8 Other obstructive and reflux uropathy; E78.5 Hyperlipidemia, unspecified; I10 Essential (primary) hypertension; Z79.899 Other long term (current) drug therapy | CPT/HCPCS: 51702 ==

== ENCOUNTER 2022-06-14 16:08 | Emergency (ER) | payer OTHER ==
[2022-06-14] MEDS ORDERED: Lidocaine 2% Jelly 5 ML TUBE ONE (16:25)
[2022-06-14] MEDS ORDERED: Acetaminophen 500 MG TAB ONE (16:28)
== END 2022-06-14 17:45 | disposition home or self-care (01) ==
LOC: NAV ERS 16:08
DX: T83.091A Other mechanical complication of indwelling urethral catheter, initial encounter (principal); E78.5 Hyperlipidemia, unspecified; I10 Essential (primary) hypertension; Y84.6 Urinary catheterization as the cause of abnormal reaction of the patient, or of later complication, without mention of misadventure at the time of the procedure; Z79.899 Other long term (current) drug therapy
CPT/HCPCS: 51703

== ENCOUNTER 2022-06-25 13:51 | Emergency (ER) | payer OTHER | END 2022-06-25 14:44 | disposition home or self-care (01) | LOC: NAV ERS 13:51 | DX: R33.9 Retention of urine, unspecified (principal); E78.5 Hyperlipidemia, unspecified; I10 Essential (primary) hypertension; Z79.899 Other long term (current) drug therapy | CPT/HCPCS: 99283 ==

== ENCOUNTER 2022-09-27 17:08 | Emergency (ER) | payer OTHER | END 2022-09-27 18:57 | disposition home or self-care (01) | LOC: NAV ERS 17:08 | DX: T83.018A Breakdown (mechanical) of other urinary catheter, initial encounter (principal) | CPT/HCPCS: 99283 ==

== ENCOUNTER 2023-08-10 11:49 | Emergency (ER) | payer OTHER ==
[~2023-08-10 11:49] MED LIST: Iopamidol 370 76% 100 ML VIAL ONE
[2023-08-10 12:07] LABS: #Basophils 0.1 thou/uL (0.0-0.2); #Eosinphils 0.2 thou/uL (0.0-0.7); #Lymphocytes 1.9 thou/uL (1.20-3.40); #Monocytes 0.4 thou/uL (0.11-0.59); %Basophils 0.9 % (0.0-1.0); %Eosinophils 3.6 % (0.0-10.0); %Monocytes 6.4 % (0.0-10.0); %Neutrophils 60.1 % (42.0-75.0); Hemoglobin 12.2 g/dL (14.0-18.0); Mean Corpuscular HGB CONC 31.3 g/dL (32.0-36.0); Mean Corpuscular Hemoglobin 26.4 pg (27.0-31.0); Mean Corpuscular Volume 84.3 fl (78.0-98.0); Mean Platelet Volume 7.7 fL (7.4-10.4); Platelet Count 322 10x3/uL (130-400); RBC Distribution Width 16.7 % (11.5-14.5); Red Blood Cell (RBC) Count 4.63 mill/uL (4.70-6.10); White Blood Cell (WBC) Count 6.7 10x3/uL (4.8-10.8)
[2023-08-10 12:14] LABS: Prothrombin Time 13.3 sec (12.0-14.7)
[2023-08-10 12:15] LABS: PTT 30.2 sec (22.9-36.1)
[2023-08-10 12:24] LABS: Troponin I 0.011 ng/mL (< 0.028)
[2023-08-10 12:27] LABS: ALT (SGPT) 17 U/L (8-55); AST (SGOT) 14 U/L (5-34); Alkaline Phosphatase 64 U/L (40-110); Anion Gap 17 mmol/L (10-20); BUN (Urea Nitrogen) 23 mg/dL (8.4-25.7); Bilirubin, Total 0.6 mg/dL (0.2-1.2); Calc. Creatinine Clearance 0 mL/min (70-130); Calcium 10.1 mg/dL (7.8-10.44); Carbon Dioxide 23 mmol/L (23-31); Chloride 103 mmol/L (98-107); Estimated GFR 57; Globulin 3.9 g/dL (2.4-3.5); Glucose 93 mg/dL (83-110); Potassium 5.2 mmol/L (3.5-5.1); Protein, Total 8.9 g/dL (5.8-8.1); Sodium 138 mmol/L (136-145)
[2023-08-10] MEDS ORDERED: Aspirin Chewable 81 MG TAB ONE (13:04)
== END 2023-08-10 20:10 | disposition short-term general hospital (02) ==
LOC: NAV ERS 11:49
DX: R47.1 Dysarthria and anarthria (principal); R60.9 Edema, unspecified; R27.0 Ataxia, unspecified; I10 Essential (primary) hypertension; Z86.73 Personal history of transient ischemic attack (TIA), and cerebral infarction without residual deficits; Z79.899 Other long term (current) drug therapy
CPT/HCPCS: 36416; 70450; 70496; 70498; 80053; 84484; 85025; 85610; 85730; 93005; Q9967

== ENCOUNTER 2023-08-13 13:26 | Inpatient (IN) | payer OTHER ==
[2023-08-13] MEDS ORDERED: Senokot S 8.6-50 MG TAB PO PRN (14:28)
[2023-08-13] MEDS ORDERED: Calcium Carbonate 500 MG ChewTAB PO PRN (14:28)
[2023-08-13] MEDS ORDERED: Bisacodyl 10 MG SUPP PR PRN (14:28)
[2023-08-13] MEDS ORDERED: Bisacodyl 5 MG TAB PO PRN (14:28)
[2023-08-13] MEDS ORDERED: Acetaminophen 650 MG Suppository PR PRN (14:28)
[2023-08-13] MEDS ORDERED: Ondansetron ODT 4 MG TAB PO PRN (14:28)
[2023-08-13] MEDS ORDERED: Guaifenesin DM 100-10/5 ML UDCUP PO PRN (14:28)
[2023-08-13] MEDS ORDERED: cloNIDine 0.1 MG TAB PO PRN (14:32)
[2023-08-13] MEDS ORDERED: Sodium Chloride 0.65% Nasal 44 ML BOT EA NARE PRN (14:32)
[2023-08-13] MEDS ORDERED: Benzocaine/Menthol 1 LOZ LOZ PO PRN (14:32)
[2023-08-13] MEDS ORDERED: Artificial Tear Sol 15 ML BOT EA EYE PRN (14:32)
[2023-08-13] MEDS ORDERED: Benzonatate 100 MG CAP PO PRN (14:32)
[2023-08-13] MEDS: Atorvastatin Calcium 40 MG TAB PO SCH (20:19)
[2023-08-13] MEDS: Famotidine 20 MG TAB PO SCH (20:19)
[2023-08-13] MEDS: Acetaminophen 325 MG TAB PO PRN (20:22)
[2023-08-14 05:27] LABS: #Basophils 0.1 thou/uL (0.0-0.2); #Eosinphils 0.4 thou/uL (0.0-0.7); #Lymphocytes 2.2 thou/uL (1.20-3.40); #Monocytes 0.8 thou/uL (0.11-0.59); #Neutrophils 5.9 thou/uL (1.40-6.50); %Basophils 0.9 % (0.0-1.0); %Eosinophils 4.1 % (0.0-10.0); %Lymphocytes 23.8 % (21.0-51.0); %Monocytes 8.8 % (0.0-10.0); %Neutrophils 62.5 % (42.0-75.0); Hemoglobin 11.9 g/dL (14.0-18.0); Mean Corpuscular HGB CONC 31.2 g/dL (32.0-36.0); Mean Corpuscular Hemoglobin 26.4 pg (27.0-31.0); Mean Corpuscular Volume 84.5 fl (78.0-98.0); Mean Platelet Volume 8.3 fL (7.4-10.4); Platelet Count 326 10x3/uL (130-400); White Blood Cell (WBC) Count 9.4 10x3/uL (4.8-10.8)
[2023-08-14 05:40] LABS: ALT (SGPT) 10 U/L (8-55); AST (SGOT) 9 U/L (5-34); Albumin 4.1 g/dL (3.4-4.8); Alkaline Phosphatase 64 U/L (40-110); Anion Gap 16 mmol/L (10-20); BUN (Urea Nitrogen) 28 mg/dL (8.4-25.7); Bilirubin, Total 0.5 mg/dL (0.2-1.2); Calc. Creatinine Clearance 40 mL/min (70-130); Calcium 9.5 mg/dL (7.8-10.44); Carbon Dioxide 23 mmol/L (23-31); Chloride 101 mmol/L (98-107); Estimated GFR 54; Globulin 3.6 g/dL (2.4-3.5); Glucose 103 mg/dL (83-110); Potassium 3.8 mmol/L (3.5-5.1); Protein, Total 7.7 g/dL (5.8-8.1); Sodium 136 mmol/L (136-145)
[2023-08-14] MEDS: Chlorthalidone 25 MG TAB PO SCH (08:20)
[2023-08-14] MEDS: Oxybutynin ER 5 MG TAB PO SCH (08:20)
[2023-08-14] MEDS: Lisinopril 20 MG TAB PO SCH (08:20)
[2023-08-14] MEDS: Ferrous Sulfate 325 MG TAB PO SCH (08:21)
[2023-08-14] MEDS: Aspirin 81 mg Enteric Coated Tablet PO SCH (08:21)
[2023-08-14] MEDS: Cholecalciferol 1,000 UNITS (25 MCG) TAB PO SCH (08:22)
[2023-08-14] MEDS: Amlodipine 10 MG TAB PO SCH (08:22)
[2023-08-15] MEDS: Famotidine 20 MG TAB PO SCH (10:13)
[2023-08-16] MEDS ORDERED: Ondansetron ODT 4 MG TAB SL PRN (04:45)
[2023-08-16 06:11] LABS: #Basophils 0.1 thou/uL (0.0-0.2); #Eosinphils 0.4 thou/uL (0.0-0.7); #Monocytes 0.7 thou/uL (0.11-0.59); #Neutrophils 4.6 thou/uL (1.40-6.50); %Eosinophils 4.6 % (0.0-10.0); %Lymphocytes 25.9 % (21.0-51.0); %Monocytes 8.5 % (0.0-10.0); %Neutrophils 60.1 % (42.0-75.0); Hematocrit 32.6 % (42.0-52.0); Hemoglobin 10.3 g/dL (14.0-18.0); Mean Corpuscular HGB CONC 31.6 g/dL (32.0-36.0); Mean Corpuscular Hemoglobin 26.8 pg (27.0-31.0); Mean Corpuscular Volume 84.8 fl (78.0-98.0); Mean Platelet Volume 8.2 fL (7.4-10.4); Platelet Count 337 10x3/uL (130-400); RBC Distribution Width 16.6 % (11.5-14.5); Red Blood Cell (RBC) Count 3.84 mill/uL (4.70-6.10); White Blood Cell (WBC) Count 7.7 10x3/uL (4.8-10.8)
[2023-08-16 06:26] LABS: Anion Gap 16 mmol/L (10-20); BUN (Urea Nitrogen) 55 mg/dL (8.4-25.7); Calc. Creatinine Clearance 14 mL/min (70-130); Calcium 9.1 mg/dL (7.8-10.44); Carbon Dioxide 21 mmol/L (23-31); Chloride 104 mmol/L (98-107); Estimated GFR 16; Glucose 94 mg/dL (83-110); Potassium 3.7 mmol/L (3.5-5.1); Sodium 137 mmol/L (136-145)
[2023-08-16] MEDS ORDERED: Acetaminophen 650 MG Suppository PR PRN (08:00)
[2023-08-16] MEDS: Acetaminophen 325 MG TAB PO PRN (08:21)
[2023-08-16] MEDS ORDERED: FLU VACC QS2023(65UP)/MF59C/PF 60 MCG/0.5 ML SYRINGE IM ONE (09:00)
[2023-08-17 06:06] LABS: Anion Gap 15 mmol/L (10-20); BUN (Urea Nitrogen) 52 mg/dL (8.4-25.7); Calc. Creatinine Clearance 23 mL/min (70-130); Calcium 9.1 mg/dL (7.8-10.44); Estimated GFR 27; Potassium 3.6 mmol/L (3.5-5.1)
[2023-08-17 06:15] LABS: #Basophils 0.1 thou/uL (0.0-0.2); #Eosinphils 0.4 thou/uL (0.0-0.7); #Monocytes 0.5 thou/uL (0.11-0.59); #Neutrophils 4.1 thou/uL (1.40-6.50); %Eosinophils 5.6 % (0.0-10.0); %Lymphocytes 28.4 % (21.0-51.0); %Monocytes 6.9 % (0.0-10.0); %Neutrophils 58.1 % (42.0-75.0); Hematocrit 32.1 % (42.0-52.0); Hemoglobin 10.1 g/dL (14.0-18.0); Mean Corpuscular HGB CONC 31.6 g/dL (32.0-36.0); Mean Corpuscular Hemoglobin 26.7 pg (27.0-31.0); Mean Corpuscular Volume 84.5 fl (78.0-98.0); Mean Platelet Volume 7.8 fL (7.4-10.4); Platelet Count 310 10x3/uL (130-400); RBC Distribution Width 16.2 % (11.5-14.5)
[2023-08-17 06:24] LABS: Carbon Dioxide 23 mmol/L (23-31); Chloride 102 mmol/L (98-107); Glucose 88 mg/dL (83-110); Sodium 136 mmol/L (136-145)
[2023-08-17] MEDS: FLU VACC QS2023(65UP)/MF59C/PF 60 MCG/0.5 ML SYRINGE IM ONE (09:47)
[2023-08-18 05:47] LABS: #Basophils 0.1 thou/uL (0.0-0.2); #Eosinphils 0.4 thou/uL (0.0-0.7); #Lymphocytes 1.8 thou/uL (1.20-3.40); #Monocytes 0.6 thou/uL (0.11-0.59); #Neutrophils 3.9 thou/uL (1.40-6.50); %Eosinophils 5.5 % (0.0-10.0); %Lymphocytes 26.7 % (21.0-51.0); %Monocytes 8.3 % (0.0-10.0); %Neutrophils 58.5 % (42.0-75.0); Hematocrit 32.9 % (42.0-52.0); Hemoglobin 10.4 g/dL (14.0-18.0); Mean Corpuscular HGB CONC 31.7 g/dL (32.0-36.0); Mean Corpuscular Hemoglobin 26.7 pg (27.0-31.0); Mean Corpuscular Volume 84.2 fl (78.0-98.0); Mean Platelet Volume 8.1 fL (7.4-10.4); Platelet Count 311 10x3/uL (130-400); RBC Distribution Width 16.1 % (11.5-14.5); Red Blood Cell (RBC) Count 3.91 mill/uL (4.70-6.10); White Blood Cell (WBC) Count 6.7 10x3/uL (4.8-10.8)
[2023-08-18 06:01] LABS: Anion Gap 13 mmol/L (10-20); BUN (Urea Nitrogen) 37 mg/dL (8.4-25.7); Calc. Creatinine Clearance 35 mL/min (70-130); Calcium 9.5 mg/dL (7.8-10.44); Carbon Dioxide 26 mmol/L (23-31); Chloride 104 mmol/L (98-107); Estimated GFR 46; Glucose 93 mg/dL (83-110); Sodium 139 mmol/L (136-145)
[2023-08-18] MEDS: Clindamycin 150 MG CAP PO SCH (20:51)
[2023-08-19 05:40] LABS: #Basophils 0.1 thou/uL (0.0-0.2); #Eosinphils 0.4 thou/uL (0.0-0.7); #Monocytes 0.6 thou/uL (0.11-0.59); #Neutrophils 4.2 thou/uL (1.40-6.50); %Eosinophils 5.4 % (0.0-10.0); %Lymphocytes 27.5 % (21.0-51.0); %Monocytes 7.7 % (0.0-10.0); %Neutrophils 58.4 % (42.0-75.0); Hematocrit 31.6 % (42.0-52.0); Hemoglobin 10.3 g/dL (14.0-18.0); Mean Corpuscular HGB CONC 32.6 g/dL (32.0-36.0); Mean Corpuscular Hemoglobin 27.2 pg (27.0-31.0); Mean Corpuscular Volume 83.5 fl (78.0-98.0); Mean Platelet Volume 7.9 fL (7.4-10.4); Platelet Count 305 10x3/uL (130-400); RBC Distribution Width 15.8 % (11.5-14.5); Red Blood Cell (RBC) Count 3.79 mill/uL (4.70-6.10); White Blood Cell (WBC) Count 7.2 10x3/uL (4.8-10.8)
[2023-08-19 05:52] LABS: Anion Gap 14 mmol/L (10-20); BUN (Urea Nitrogen) 43 mg/dL (8.4-25.7); Calc. Creatinine Clearance 24 mL/min (70-130); Calcium 9.2 mg/dL (7.8-10.44); Carbon Dioxide 24 mmol/L (23-31); Chloride 102 mmol/L (98-107); Estimated GFR 29; Glucose 94 mg/dL (83-110); Potassium 4.2 mmol/L (3.5-5.1); Sodium 136 mmol/L (136-145)
[2023-08-19] MEDS: Sodium Chloride 0.9% 1,000 ML IV SCH (14:32)
[2023-08-20 06:02] LABS: Anion Gap 11 mmol/L (10-20); BUN (Urea Nitrogen) 27 mg/dL (8.4-25.7); Calc. Creatinine Clearance 41 mL/min (70-130); Calcium 8.5 mg/dL (7.8-10.44); Carbon Dioxide 23 mmol/L (23-31); Chloride 107 mmol/L (98-107); Estimated GFR 55; Glucose 86 mg/dL (83-110); Potassium 3.7 mmol/L (3.5-5.1); Sodium 137 mmol/L (136-145)
[2023-08-21 05:34] LABS: Anion Gap 12 mmol/L (10-20); BUN (Urea Nitrogen) 18 mg/dL (8.4-25.7); Calc. Creatinine Clearance 45 mL/min (70-130); Carbon Dioxide 24 mmol/L (23-31); Chloride 105 mmol/L (98-107); Estimated GFR 63; Glucose 90 mg/dL (83-110); Potassium 4.3 mmol/L (3.5-5.1); Sodium 137 mmol/L (136-145)
[2023-08-21] MEDS: Enoxaparin 40 MG (0.4 mL) SYRINGE SC SCH (08:06)
[2023-08-21] MEDS ORDERED: Acetaminophen 120 MG Suppository PR PRN ×2 (09:09→14:45)
[2023-08-21] MEDS: Acetaminophen 500 MG TAB PO PRN (12:51)
[2023-08-21] MEDS: HYDROcodone/Acetaminophen 5/325 mg Tablet PO PRN (14:57)
[2023-08-22 04:06] VITALS: BMI 23.2
[2023-08-22] MEDS: Acetaminophen 500 MG TAB PO PRN (07:12)
[2023-08-23 05:53] LABS: Anion Gap 15 mmol/L (10-20); BUN (Urea Nitrogen) 25 mg/dL (8.4-25.7); Calc. Creatinine Clearance 33 mL/min (70-130); Calcium 9.4 mg/dL (7.8-10.44); Carbon Dioxide 24 mmol/L (23-31); Chloride 104 mmol/L (98-107); Estimated GFR 43; Glucose 98 mg/dL (83-110); Potassium 4.7 mmol/L (3.5-5.1); Sodium 138 mmol/L (136-145)
[2023-08-24 06:23] LABS: #Basophils 0.1 thou/uL (0.0-0.2); #Eosinphils 0.4 thou/uL (0.0-0.7); #Lymphocytes 1.8 thou/uL (1.20-3.40); #Monocytes 0.5 thou/uL (0.11-0.59); #Neutrophils 4.1 thou/uL (1.40-6.50); %Basophils 0.8 % (0.0-1.0); %Eosinophils 5.9 % (0.0-10.0); %Monocytes 6.6 % (0.0-10.0); %Neutrophils 60.7 % (42.0-75.0); Hematocrit 30.6 % (42.0-52.0); Hemoglobin 9.7 g/dL (14.0-18.0); Mean Corpuscular HGB CONC 31.8 g/dL (32.0-36.0); Mean Corpuscular Hemoglobin 27.1 pg (27.0-31.0); Mean Corpuscular Volume 85.5 fl (78.0-98.0); Mean Platelet Volume 8.5 fL (7.4-10.4); Platelet Count 245 10x3/uL (130-400); Red Blood Cell (RBC) Count 3.59 mill/uL (4.70-6.10); White Blood Cell (WBC) Count 6.8 10x3/uL (4.8-10.8)
[2023-08-24 06:40] LABS: Anion Gap 12 mmol/L (10-20); BUN (Urea Nitrogen) 31 mg/dL (8.4-25.7); Calc. Creatinine Clearance 32 mL/min (70-130); Calcium 9.3 mg/dL (7.8-10.44); Carbon Dioxide 24 mmol/L (23-31); Chloride 102 mmol/L (98-107); Estimated GFR 41; Glucose 86 mg/dL (83-110); Potassium 4.4 mmol/L (3.5-5.1); Sodium 134 mmol/L (136-145)
[2023-08-25 06:08] LABS: Anion Gap 14 mmol/L (10-20); BUN (Urea Nitrogen) 33 mg/dL (8.4-25.7); Calc. Creatinine Clearance 34 mL/min (70-130); Calcium 9.6 mg/dL (7.8-10.44); Carbon Dioxide 25 mmol/L (23-31); Chloride 102 mmol/L (98-107); Estimated GFR 44; Glucose 89 mg/dL (83-110); Potassium 4.9 mmol/L (3.5-5.1); Sodium 136 mmol/L (136-145)
[2023-08-26] MEDS: Cyclobenzaprine 10 MG TAB PO PRN (23:19)
[2023-08-27 08:22] VITALS: BP 106/68; TEMP 97.6
== END 2023-08-27 10:15 | disposition home or self-care (01) | DRG 56 ==
LOC: NAV ACUTE 15:56
PROVIDERS: ADMIT Family Medicine; ATTEND Family Medicine
DX: I69.398 Other sequelae of cerebral infarction (principal); I62.00 Nontraumatic subdural hemorrhage, unspecified; E78.5 Hyperlipidemia, unspecified; I10 Essential (primary) hypertension; R53.1 Weakness; I65.23 Occlusion and stenosis of bilateral carotid arteries; R33.9 Retention of urine, unspecified; Z66 Do not resuscitate; I69.391 Dysphagia following cerebral infarction; R53.81 Other malaise; I35.0 Nonrheumatic aortic (valve) stenosis; D64.9 Anemia, unspecified; Z79.82 Long term (current) use of aspirin; Z79.899 Other long term (current) drug therapy; Z98.890 Other specified postprocedural states; Z98.2 Presence of cerebrospinal fluid drainage device
CPT/HCPCS: 36415; 70450; 80048; 80053; 83880; 85025; 90471; 90694; G0008; J1650; J7050

== ENCOUNTER 2023-09-01 13:29 | Emergency (ER) | payer OTHER ==
[2023-09-01 14:16] LABS: #Basophils 0.1 thou/uL (0.0-0.2); #Eosinphils 0.3 thou/uL (0.0-0.7); #Lymphocytes 1.2 thou/uL (1.20-3.40); #Monocytes 0.4 thou/uL (0.11-0.59); #Neutrophils 5.8 thou/uL (1.40-6.50); %Basophils 0.8 % (0.0-1.0); %Eosinophils 4.4 % (0.0-10.0); %Lymphocytes 15.2 % (21.0-51.0); %Monocytes 5.4 % (0.0-10.0); %Neutrophils 74.2 % (42.0-75.0); Hematocrit 30.3 % (42.0-52.0); Hemoglobin 9.5 g/dL (14.0-18.0); Mean Corpuscular HGB CONC 31.3 g/dL (32.0-36.0); Mean Corpuscular Hemoglobin 27.3 pg (27.0-31.0); Mean Corpuscular Volume 87.4 fl (78.0-98.0); Mean Platelet Volume 7.6 fL (7.4-10.4); Platelet Count 239 10x3/uL (130-400); RBC Distribution Width 17.4 % (11.5-14.5); Red Blood Cell (RBC) Count 3.47 mill/uL (4.70-6.10); White Blood Cell (WBC) Count 7.8 10x3/uL (4.8-10.8)
[2023-09-01 14:25] LABS: Bilirubin Negative (Negative); Blood, Urine Small (Negative); Glucose, Urine (Dipstick) Negative (Negative); Ketone, Urine Negative (Negative); Leukocyte Moderate (Negative); Nitrite Negative (Negative); Protein, Urine (Dipstick) Trace mg/dL (Neg-Trace); Urobilinogen 0.2 mg/dL (Less than 2)
[2023-09-01 14:31] LABS: Clarity Hazy (Clear)
[2023-09-01 14:32] LABS: Bacteria/HPF 3+ HPF (None Seen); CAUTI Indications for Culture Dysuria,urgency,freq; Squamous Epithelial 0-3 HPF (0-3); WBC/HPF Greater Than 50 HPF (0-3)
[2023-09-01 14:33] LABS: Urine Culture Reflex Yes Yes
[2023-09-01 14:35] LABS: ALT (SGPT) 13 U/L (8-55); AST (SGOT) 12 U/L (5-34); Albumin 4.1 g/dL (3.4-4.8); Alkaline Phosphatase 53 U/L (40-110); Anion Gap 15 mmol/L (10-20); BUN (Urea Nitrogen) 32 mg/dL (8.4-25.7); Bilirubin, Total 0.3 mg/dL (0.2-1.2); Calc. Creatinine Clearance 0 mL/min (70-130); Calcium 9.1 mg/dL (7.8-10.44); Carbon Dioxide 19 mmol/L (23-31); Chloride 109 mmol/L (98-107); Estimated GFR 52; Globulin 3.4 g/dL (2.4-3.5); Glucose 95 mg/dL (83-110); Potassium 4.4 mmol/L (3.5-5.1); Protein, Total 7.5 g/dL (5.8-8.1); Sodium 139 mmol/L (136-145)
[2023-09-01] MEDS ORDERED: Cephalexin 250 MG CAP ONE (14:58)
== END 2023-09-01 15:03 | disposition home or self-care (01) ==
LOC: NAV ERS 13:29
DX: N39.0 Urinary tract infection, site not specified (principal); N32.89 Other specified disorders of bladder; D64.9 Anemia, unspecified; I12.9 Hypertensive chronic kidney disease with stage 1 through stage 4 chronic kidney disease, or unspecified chronic kidney disease; N18.9 Chronic kidney disease, unspecified; Z79.82 Long term (current) use of aspirin; Z86.73 Personal history of transient ischemic attack (TIA), and cerebral infarction without residual deficits; Z79.899 Other long term (current) drug therapy
CPT/HCPCS: 80053; 81001; 85025; 87077; 87086; 99283